=== PATIENT | male | born 1945 | race African-American/Black ===

== ENCOUNTER → 2016-09-20 | Day surgery (SDC) | payer MEDICARE, OTHER ==
[~2016-09-20] MED LIST: ACIP20TA19 PO; LACTATED RINGER'S 1,000 ML BAG IV ONE; MMW SS; PROPOFOL 200 MG/20 ML AMP IV ONE; RANI150 PO
--- NOTE | 2016-09-20 11:46 | GIPROC ---
[facility] [address] [facility], [address] EGD PROCEDURE REPORT EXAM DATE: 09/20/2016 PATIENT NAME: Quinn Becker MR #: [id number] BIRTHDATE: 1945 ATTENDING: Carla Burciaga MD ORDER #: [id number] EMERGENCY SPECIALIST: Sharonda Rock RN STATUS: outpatient INDICATIONS: The patient is a 70 yr old male here for an EGD due to history of esophageal reflux PROCEDURE PERFORMED: EGD w/ biopsy MEDICATIONS: None and Per Anesthesia. TOPICAL ANESTHETIC: CONSENT: The patient understands the risks and benefits of the procedure and understands that these risks include, but are not limited to: sedation, allergic reaction, infection, perforation and/or bleeding. Alternative means of evaluation and treatment include, among others: physical exam, x-rays, and/or surgical intervention. The patient elects to proceed with this endoscopic procedure. medical equipment was checked for proper function. Hand hygiene and appropriate measures for infection prevention was taken. After the risks, benefits and alternatives of the procedure were thoroughly explained, Informed consent was verified, confirmed and timeout was successfully executed by the treatment team. The patient was anesthetized with topical anesthesia and the EC-[id number] ([id number]) endoscope was introduced through the mouth and advanced to the second portion of the duodenum. Retroflexed views revealed a hiatal hernia The gastroscope was then slowly withdrawn and removed. ESOPHAGUS: There was LA Class C esophagitis noted. Multiple biopsies were performed using cold forceps. Sample sent for histology. STOMACH: A polypoid shaped semi-pedunculated polyp ranging between 5-9mm in size was found in the gastric body. A biopsy was performed using cold forceps. Sample sent for histology. DUODENUM: The duodenal mucosa appeared normal in the bulb and second portion of the duodenum. ADVERSE EVENTS: There were no complications. IMPRESSIONS: 1. There was LA Class C esophagitis noted; multiple biopsies were performed 2. Semi-pedunculated polyp ranging between 5-9mm in size was found in the gastric body; biopsy was performed 3. Normal duodenal mucosa in the bulb and second portion of the duodenum 4. Retroflexed views revealed a hiatal hernia RECOMMENDATIONS: 1. Await biopsy results. Biopsy results will not be ready for 7-10 days. If you don't hear from us in two weeks, call our office for biopsy results. 2. Anti-reflux regimen 3. Continue PPI 4. Avoid NSAIDS PATIENT CONDITION: stable DISPOSITION: Home REPEAT EXAM: Return 1 year EGD pending biopsy results Carla Burciaga MD eSigned: Carla Burciaga MD 09/20/2016 11:45 AM cc: Nelly Luis [facility] Luna Dunbar M.D. PATIENT NAME: Quinn Becker MR#: [id number]
== END | disposition home or self-care (01) ==
LOC: ESDC 09:17
PROVIDERS: ATTEND Internal Medicine Gastroenterology
DX: K21.9 Gastro-esophageal reflux disease without esophagitis (principal); K20.9 Esophagitis, unspecified; K31.7 Polyp of stomach and duodenum; K44.9 Diaphragmatic hernia without obstruction or gangrene
CPT/HCPCS: 00740; 43239; 88305; 88312; J3010; J7120